=== PATIENT | female | born 1950 | race Caucasian/White ===

== ENCOUNTER 2016-09-16 05:57 | Day surgery (SDC) | payer BC, MEDICARE ==
[~2016-09-16] VITALS: Ht 161.3 cm; Wt 97.3 kg
[~2016-09-16 05:57] MED LIST: ASPI81TA2 PO; GLIM4TAB3 PO; LEVO100T12 PO; LISI1TAB11 PO; METF10002 PO; SIMV40TA5 PO; SITA100T12 PO
--- OUTSIDE RECORDS SUMMARY | 2016-09-16 06:02 | XMS REPORT | Referral Summary ---
Author Author [facility], Family Medicine Organization [facility] Address Unknown Phone Unavailable Care Team Providers Care Marketing And Communications Officer Name Role Phone Carl Mena Primary Care Physician [phone] Encounter VC Date(s): 10/15/14 - 10/15/14 [facility], [address] [place] [address]- Discharge Diagnosis: Type II diabetes mellitus uncontrolled Discharge Diagnosis: Essential hypertension Discharge Disposition: 01-Home or Self Care Attending Physician: Roxie Stover APRN Admitting Physician: Roxie Stover APRN Vital Signs Most recent to 1 oldest [Reference Range]: Temperature Oral 36.7 degC [35.8-37.3 degC] (10/15/14 10:07 AM) Peripheral Pulse 64 bpm Rate [60-100 bpm] (10/15/14 10:07 AM) Blood Pressure 122/78 mmHg [90-140/60-90 mmHg] (10/15/14 10:07 AM) Problem List Condition Effective Dates Status Health Status Informant Thyroid Active disease(Confirmed) Essential Active hypertension (disorder)(Confirmed ) High Active Cholesterol(Confirme d)1 Hyperlipidemia(Confi Active rmed) Hypothyroidism Active (disorder)(Confirmed ) Overweight(Confirmed Active ) Type II diabetes Active mellitus uncontrolled (finding)(Confirmed) 1See Conversion Document. Allergies, Adverse Reactions, Alerts No Known Medication Allergies Substance Reaction Severity Status Nutrasweet FITZGERALD (headache) Severe Active Medications Sugar-[place] Plus Night-Time Cold tabs, Oral, Bedtime (once a day), as needed for flu symptoms, 0 Refill(s) Start Date: 03/17/15 Status: Ordered glimepiride 4 mg oral tablet See Instructions, TAKE ONE and HALF TABLET BY MOUTH EVERY MORNING, AND 1/2 TABLET AT SUPPER., # 180 tabs, 1 Refill(s), Pharmacy: [facility] #[id number], TAKE ONE and HALF TABLET BY MOUTH EVERY MORNING, AND 1/2 TABLET AT SUPPER. Start Date: 03/18/15 Status: Ordered Glucometer (DME) DME Item ReliOn Prime Use as directed, to test blood sugars daily., Supply Start Date: 07/18/14 Status: Ordered Januvia 25 mg oral tablet 25 mg 1 tabs, Oral, Daily, # 90 tabs, 1 Refill(s), Pharmacy: [facility] # [id number] Start Date: 03/17/15 Status: Ordered levothyroxine 100 mcg (0.1 mg) oral tablet 100 mcg 1 tabs, Oral, Daily, # 90 tabs, 3 Refill(s), Pharmacy: [facility] #[id number], 1 tabs Oral Daily Start Date: 03/18/15 Status: Ordered lisinopril-hydrochlorothiazide 20 mg-12.5 mg oral tablet See Instructions, TAKE ONE TABLET BY MOUTH ONCE A DAY, # 90 tabs, 1 Refill(s), Pharmacy: [facility] #[id number] Start Date: 03/17/15 Status: Ordered metFORMIN 1000 mg oral tablet See Instructions, TAKE ONE TABLET BY MOUTH TWICE A DAY, WITH MORNING AND EVENING MEALS, # 180 tabs, 1 Refill(s), Pharmacy: [facility] #[id number], TAKE ONE TABLET BY MOUTH TWICE A DAY, WITH MORNING AND EVENING MEALS Start Date: 03/17/15 Status: Ordered nystatin 100,000 units/g topical cream pal, Topical, BID, to the affected area(s). Start Date: 07/18/14 Status: Ordered simvastatin 40 mg oral tablet See Instructions, TAKE ONE TABLET BY MOUTH EVERY DAY, # 90 tabs, 1 Refill(s), Pharmacy: [facility] #[id number], TAKE ONE TABLET BY MOUTH EVERY DAY Start Date: 03/17/15 Status: Ordered Results No data available for this section Immunizations Vaccine Date Refusal Reason tetanus/diphth/pertuss (Tdap) adult/adol 03/21/12 tetanus/diphth/pertuss (Tdap) adult/adol 04/01/10 influenza virus vaccine, inactivated 03/17/15 influenza virus vaccine, live 03/26/13 influenza virus vaccine, live 01/24/12 pneumococcal 13-valent conjugate vaccine 03/17/15 Procedures Procedure Date Related Diagnosis Body Site Gall Bladder 1995 Hysterectomy 1987 Social History Social History Type Response Smoking Status Never smoker Assessment and Plan Extracted from: Title: Ambulatory Patient Education Author: Roxie Stover TIRE CORD WEAVER Date : 10/15/14 Family Medicine Hypertension Hypertension is another name for high blood pressure. High blood pressure may mean that your heart needs to work harder to pump blood. Blood pressure consists of two numbers, which includes a higher number over a lower number ( example: 110/72). HOME CARE Make lifestyle changes as told by your doctor. This may include weight loss and exercise. Take your blood pressure medicine every day. Limit how much salt you use. Stop smoking if you smoke. Do not use drugs. Talk to your doctor if you are using decongestants or control pills. These medicines might make blood pressure higher. Females should not drink more than 1 alcoholic drink per day. Males should not drink more than 2 alcoholic drinks per day. See your doctor as told. GET HELP RIGHT AWAY IF: You have a blood pressure reading with a top number of 180 or higher. You get a very bad headache. You get blurred or changing vision. You feel confused. You feel weak, numb, or faint. You get chest or belly (abdominal ) pain. You throw up (vomit ). You cannot breathe very well. MAKE SURE YOU: Understand these instructions. Will watch your condition. Will get help right away if you are not doing well or get worse. Document Released: 10/25/2008 Document Revised: 07/31/2012 Document Reviewed: ExitCare Patient Information 2014 [employer] [facility]. No follow up information was provided. Extracted from: Title: Office Visit Note Author: Roxie Stover TIRE CORD WEAVER Date: 10/15/14 Assessment/Plan Essential hypertension Type II diabetes mellitus uncontrolled start januvia, recheck a1c in 1 mo. work of diet and exercise. Orders: sitaGLIPtin, 25 mg 1 tabs, Oral, Daily, # 30 tabs, 3 Refill(s), Pharmacy: [facility] #[id number]
--- OUTSIDE RECORDS SUMMARY | 2016-09-16 06:02 | XMS REPORT | Referral Summary ---
Author Author [facility], Family [facility] Organization [facility] Address Unknown Phone Unavailable Care Team Providers Care Hospitality Intern Name Role Phone Carl Mena Primary Care Physician [phone] Encounter VC Date(s): 10/22/15 - 10/22/15 [facility] [address] [place] [address]- Discharge Diagnosis: Essential hypertension (disorder) Discharge Diagnosis: Type 2 diabetes mellitus without complications Discharge Diagnosis: Hypothyroidism, unspecified Discharge Diagnosis: Hyperlipidemia, unspecified Discharge Disposition: 01-Home or Self Care Attending Physician: Kamla Mena DO Admitting Physician: Kamla Mena DO Vital Signs Most recent to 1 oldest [Reference Range]: Peripheral Pulse 76 bpm Rate [60-100 bpm] (10/22/15 3:17 PM) Respiratory Rate 18 br/min [14-20 br/min] (10/22/15 3:17 PM) Blood Pressure 112/70 mmHg [90-140/60-90 mmHg] (10/22/15 3:17 PM) SpO2 97 % (10/22/15 3:17 PM) Problem List Condition Effective Dates Status Health Status Informant Thyroid Active disease(Confirmed) Essential Active hypertension (disorder)(Confirmed ) High Active Cholesterol(Confirme d)1 Hyperlipidemia(Confi Active rmed) Hypothyroidism Active (disorder)(Confirmed ) Overweight(Confirmed Active ) Type II diabetes Active mellitus uncontrolled (finding)(Confirmed) 1See Conversion Document. Allergies, Adverse Reactions, Alerts No Known Medication Allergies Substance Reaction Severity Status Nutrasweet FITZGERALD (headache)... Severe Active Medications Sugar-[place] Plus Night-Time Cold tabs, Oral, Bedtime (once a day), as needed for flu symptoms, 0 Refill(s) Start Date: 03/17/15 Status: Ordered glimepiride 4 mg oral tablet See Instructions, TAKE ONE TABLET BY MOUTH EVERY MORNING, AND 1/2 TABLET AT SUPPER, # 135 tabs, eRx: [facility] #[id number], TAKE ONE TABLET BY MOUTH EVERY MORNING, AND 1/2 TABLET AT SUPPER Start Date: 09/08/15 Status: Ordered Glucometer (DME) DME Item ReliOn Prime Use as directed, to test blood sugars daily., Supply Start Date: 07/18/14 Status: Ordered Januvia 25 mg oral tablet See Instructions, TAKE ONE TABLET BY MOUTH DAILY, # 90 tabs, eRx: [facility] #[id number], TAKE ONE TABLET BY MOUTH DAILY Start Date: 10/08/15 Status: Ordered levothyroxine 100 mcg (0.1 mg) oral tablet 100 mcg 1 tabs, Oral, Daily, over due for appointment no more refills until seen , # 30 tabs, 0 Refill(s), Pharmacy: [facility] #[id number], 1 tabs Oral Daily, Instr:over due for appointment no more refills until seen Start Date: 09/29/15 Status: Ordered lisinopril-hydrochlorothiazide 20 mg-12.5 mg oral tablet 1 tabs, Oral, Daily, PT DUE FOR APPOINTMENT, # 30 tabs, 0 Refill(s), Pharmacy: [facility] #[id number] Start Date: 09/30/15 Status: Ordered metFORMIN 1000 mg oral tablet See Instructions, TAKE ONE TABLET BY MOUTH TWICE A DAY, WITH MORNING AND EVENING MEALS/ due for appointment, # 60 tabs, 0 Refill(s), Pharmacy: [facility] #[id number], TAKE ONE TABLET BY MOUTH TWICE A DAY, WITH MORNING AND EVENING MEALS/ due for appo... Start Date: 09/29/15 Status: Ordered nystatin 100,000 units/g topical cream pal, Topical, BID, to the affected area(s). Start Date: 07/18/14 Status: Ordered simvastatin 40 mg oral tablet See Instructions, TAKE ONE TABLET BY MOUTH DAILY, # 90 tabs, eRx: [facility] #[id number], TAKE ONE TABLET BY MOUTH DAILY Start Date: 10/13/15 Status: Ordered Results Chemistry Most recent to 1 oldest [Reference Range]: Sodium Lvl [135-144 140 mEq/L mEq/L] (10/22/15 3:58 PM) Potassium Lvl 5.0 mEq/L [3.5-5.2 mEq/L] (10/22/15 3:58 PM) Chloride [99-111 105 mEq/L mEq/L] (10/22/15 3:58 PM) CO2 [22-31 mEq/L] 25 mEq/L (10/22/15 3:58 PM) AGAP [3-20] 10 (10/22/15 3:58 PM) BUN [10-20 mg/dL] 30 mg/dL *HI* (10/22/15 3:58 PM) Glucose Lvl [70-99 161 mg/dL mg/dL] *HI* (10/22/15 3:58 PM) Creatinine Lvl 0.95 mg/dL [0.57-1.11 mg/dL] (10/22/15 3:58 PM) eGFR [>60 mL/min] 59 mL/min 1 *ABN* (10/22/15 3:58 PM) Calcium Lvl 9.5 mg/dL [8.9-10.5 mg/dL] (10/22/15 3:58 PM) Albumin Lvl [3.4-4.8 4.2 gm/dL gm/dL] (10/22/15 3:58 PM) Total Protein 6.7 gm/dL [6.2-8.1 gm/dL] (10/22/15 3:58 PM) Globulin [1.8-4.0 2.5 gm/dL gm/dL] (10/22/15 3:58 PM) ALT [0-55 U/L] 13 U/L (10/22/15 3:58 PM) AST [5-34 U/L] 12 U/L (10/22/15 3:58 PM) Alk Phos [40-150 89 U/L U/L] (10/22/15 3:58 PM) Bili Total [0.2-1.2 0.3 mg/dL mg/dL] (10/22/15 3:58 PM) TSH with Reflex Free 1.25 T4 [0.35-4.94] (10/22/15 3:58 PM) Hgb A1c [4.1-5.6 %] 8.3 % *HI* (10/22/15 3:58 PM) eAvg Glucose 191.5 mg/dL (10/22/15 3:58 PM) 1Result Comment: Multiply eGFR results by 1.21 for race. Immunizations Vaccine Date Refusal Reason tetanus/diphth/pertuss (Tdap) adult/adol 03/21/12 tetanus/diphth/pertuss (Tdap) adult/adol 04/01/10 influenza virus vaccine, inactivated 03/17/15 influenza virus vaccine, live 03/26/13 influenza virus vaccine, live 01/24/12 pneumococcal 13-valent conjugate vaccine 03/17/15 Procedures Procedure Date Related Diagnosis Body Site Gall Bladder 1995 Hysterectomy 1987 Social History Social History Type Response Smoking Status Never smoker Assessment and Plan Extracted from: Title: Office Visit Note Author: Kamla Mena DO Date: 10/22/15 Assessment/Plan Diabetes, Type 2 diabetes mellitus without complications We will get an A1c today with further recommendations after results. If A1c is within good control she will return to clinic in 6 months. Ordered: Hemoglobin A1c Office Visit Level 4 Est 90949 Essential hypertension (disorder) This is well-controlled at this time, we will get a CMP today. Return to clinic 6 months. Ordered: Office Visit Level 4 Est 11421 Hyperlipidemia, Hyperlipidemia, unspecified She has not yet due for fasting lipid panel. We will get a CMP today. Return to clinic 6 months. Ordered: Comprehensive Metabolic Panel Office Visit Level 4 Est 88005 Hypothyroidism, Hypothyroidism, unspecified TSH today since we recently changed her medications. Further recommendations after results. Ordered: Office Visit Level 4 Est 36426 TSH with Reflex Free T4 Orders: BD Bone Density DEXA Axial Skeleton
--- OUTSIDE RECORDS SUMMARY | 2016-09-16 06:02 | XMS REPORT | Referral Summary ---
Author Author [facility], Family Medicine Organization [facility] Address Unknown Phone Unavailable Care Team Providers Care Xerox Machine Assembler Name Role Phone Carl Mena Primary Care Physician [phone] Encounter VC Date(s): 03/17/15 - 03/17/15 [facility], [address] [place] [address]- Discharge Diagnosis: Essential hypertension (disorder) Discharge Disposition: 01-Home or Self Care Attending Physician: Kamla Mena DO Admitting Physician: Kamla Mena DO Vital Signs Most recent to 1 oldest [Reference Range]: Temperature Tympanic 36.9 degC [36.6-38.1 degC] (03/17/15 3:41 PM) Peripheral Pulse 100 bpm Rate [60-100 bpm] (03/17/15 3:41 PM) Blood Pressure 116/66 mmHg [90-140/60-90 mmHg] (03/17/15 3:41 PM) SpO2 94 % (03/17/15 3:41 PM) Problem List Condition Effective Dates Status Health Status Informant Thyroid Active disease(Confirmed) Essential Active hypertension (disorder)(Confirmed ) High Active Cholesterol(Confirme d)1 Hyperlipidemia(Confi Active rmed) Hypothyroidism Active (disorder)(Confirmed ) Overweight(Confirmed Active ) Type II diabetes Active mellitus uncontrolled (finding)(Confirmed) 1See Conversion Document. Allergies, Adverse Reactions, Alerts No Known Medication Allergies Substance Reaction Severity Status Nutrasweet FITZGERALD (headache) Severe Active Medications Sugar-[place] Plus Night-Time Cold tabs, Oral, Bedtime (once a day), as needed for flu symptoms, 0 Refill(s) Start Date: 03/17/15 Status: Ordered glimepiride 4 mg oral tablet See Instructions, TAKE ONE TABLET BY MOUTH EVERY MORNING, AND 1/2 TABLET AT SUPPER., # 135 tabs, 1 Refill(s), Pharmacy: [facility] #[id number], TAKE ONE TABLET BY MOUTH EVERY MORNING, AND 1/2 TABLET AT SUPPER. Start Date: 03/17/15 Status: Ordered Glucometer (DME) DME Item ReliOn Prime Use as directed, to test blood sugars daily., Supply Start Date: 07/18/14 Status: Ordered Januvia 25 mg oral tablet 25 mg 1 tabs, Oral, Daily, # 90 tabs, 1 Refill(s), Pharmacy: [facility] # [id number] Start Date: 03/17/15 Status: Ordered levothyroxine 125 mcg (0.125 mg) oral tablet 125 mcg 1 tabs, Oral, Daily, # 90 tabs, 1 Refill(s), Pharmacy: [facility] #[id number], 1 tabs Oral Daily Start Date: 03/17/15 Status: Ordered lisinopril-hydrochlorothiazide 20 mg-12.5 mg oral tablet See Instructions, TAKE ONE TABLET BY MOUTH ONCE A DAY, # 90 tabs, 1 Refill(s), Pharmacy: [facility] #[id number] Start Date: 03/17/15 Status: Ordered metFORMIN 1000 mg oral tablet See Instructions, TAKE ONE TABLET BY MOUTH TWICE A DAY, WITH MORNING AND EVENING MEALS, # 180 tabs, 1 Refill(s), Pharmacy: [facility] #[id number], TAKE ONE TABLET BY MOUTH TWICE A DAY, WITH MORNING AND EVENING MEALS Start Date: 03/17/15 Status: Ordered nystatin 100,000 units/g topical cream pal, Topical, BID, to the affected area(s). Start Date: 07/18/14 Status: Ordered simvastatin 40 mg oral tablet See Instructions, TAKE ONE TABLET BY MOUTH EVERY DAY, # 90 tabs, 1 Refill(s), Pharmacy: [facility] #[id number], TAKE ONE TABLET BY MOUTH EVERY DAY Start Date: 03/17/15 Status: Ordered Results Chemistry Most recent to 1 oldest [Reference Range]: TSH [0.35-4.94] 0.05 *LOW* (03/17/15 4:35 PM) Immunizations Vaccine Date Refusal Reason tetanus/diphth/pertuss (Tdap) adult/adol 03/21/12 tetanus/diphth/pertuss (Tdap) adult/adol 04/01/10 influenza virus vaccine, inactivated 03/17/15 influenza virus vaccine, live 03/26/13 influenza virus vaccine, live 01/24/12 pneumococcal 13-valent conjugate vaccine 03/17/15 Procedures Procedure Date Related Diagnosis Body Site Collection of venous blood by venipuncture 03/17/15 Gall Bladder 1995 Hysterectomy 1988 Social History Social History Type Response Smoking Status Never smoker Assessment and Plan Extracted from: Title: Office Visit Note Author: Kamla Mena DO Date: 03/17/15 Assessment/Plan Diabetes A1c today, recommendations after this. Return to clinic 6 months unless drastic change in A1c. Ordered: Hemoglobin A1c Office Visit Level 4 Est 97444 Essential hypertension (disorder) Currently controlled, continue current medications. Ordered: Office Visit Level 4 Est 55216 Hypothyroidism Recheck lab today, further recommendations upon results. Return to clinic 6 months. Ordered: Office Visit Level 4 Est 78140 TSH 3rd Generation Need for influenza vaccination Ordered: Office Visit Level 4 Est 36104 Orders: glimepiride, See Instructions, TAKE ONE TABLET BY MOUTH EVERY MORNING , AND 1/2 TABLET AT SUPPER., # 135 tabs, 1 Refill(s), Pharmacy: [facility] #[id number], TAKE ONE TABLET BY MOUTH EVERY MORNING, AND 1/2 TABLET AT SUPPER. levothyroxine, 125 mcg 1 tabs, Oral, Daily, # 90 tabs, 1 Refill(s), Pharmacy: [facility] #[id number], 1 tabs Oral Daily lisinopril-hydrochlorothiazide, See Instructions, TAKE ONE TABLET BY MOUTH ONCE A DAY, # 90 tabs, 1 Refill(s), Pharmacy: [facility] #[id number] metFORMIN, See Instructions, TAKE ONE TABLET BY MOUTH TWICE A DAY, WITH MORNING AND EVENING MEALS, # 180 tabs, 1 Refill(s), Pharmacy: [facility] # [id number], TAKE ONE TABLET BY MOUTH TWICE A DAY, WITH MORNING AND EVENING MEALS simvastatin, See Instructions, TAKE ONE TABLET BY MOUTH EVERY DAY, # 90 tabs, 1 Refill(s), Pharmacy: [facility] #[id number], TAKE ONE TABLET BY MOUTH EVERY DAY sitaGLIPtin, 25 mg 1 tabs, Oral, Daily, # 90 tabs, 1 Refill(s), Pharmacy: [facility] #[id number]
--- OUTSIDE RECORDS SUMMARY | 2016-09-16 06:02 | XMS REPORT | Referral Summary ---
Author Author [facility], Family Medicine Organization [facility] Address Unknown Phone Unavailable Care Team Providers Care Coal Or Ore Controller Name Role Phone Carl Mena Primary Care Physician [phone] Encounter VC Date(s): 03/17/15 - 03/17/15 [facility], [address] [place] [address]- Discharge Diagnosis: Essential hypertension (disorder) Discharge Disposition: [...] Status Nutrasweet FITZGERALD (headache)... Severe Active Medications Sugar-Ber[place] Plus Night-Time Cold tabs, Oral, Bedtime (once a day), as needed for flu symptoms, 0 Refill(s) Start Date: 03/17/15 Status: Ordered glimepiride 4 mg oral tablet See Instructions, TAKE ONE TABLET BY MOUTH EVERY MORNING, AND 1/2 TABLET AT SUPPER, # 135 tabs, eRx: [facility] #[id number], TAKE ONE TABLET BY MOUTH EVERY MORNING, AND 1/2 TABLET AT SUPPER Start Date: 09/08/15 Status: Ordered Glucometer (DME) DME Item ReliOn Prime Use as directed, to test blood sugars daily., Supply Start Date: 07/18/14 Status: Ordered Januvia 25 mg oral tablet 25 mg 1 tabs, Oral, Daily, # 90 tabs, 1 Refill(s), Pharmacy: [facility] # [id number] Start Date: 03/17/15 Status: Ordered levothyroxine 100 mcg (0.1 mg) oral tablet 100 mcg 1 tabs, Oral, Daily, # 90 tabs, 3 Refill(s), Pharmacy: [facility] #[id number], 1 tabs Oral Daily Start Date: 03/18/15 Status: Ordered lisinopril-hydrochlorothiazide 20 mg-12.5 mg oral tablet See Instructions, TAKE ONE TABLET BY MOUTH ONCE A DAY, # 90 tabs, 1 Refill(s), Pharmacy: [facility] #[id number] Start Date: 03/17/15 Status: Ordered metFORMIN 1000 mg oral tablet See Instructions, TAKE ONE TABLET BY MOUTH TWICE A DAY, WITH MORNING AND EVENING MEALS, # 180 tabs, 1 Refill(s), Pharmacy: [facility] #[id number], TAKE ONE TABLET BY MOUTH TWICE A DAY, WITH MORNING AND EVENING MEALS Start Date: 03/17/15 Status: Ordered nystatin 100,000 units/g topical cream pal, Topical, BID, to the affected area(s). Start Date: 07/18/14 Status: Ordered simvastatin 40 mg oral tablet See Instructions, TAKE ONE TABLET BY MOUTH EVERY DAY, # 90 tabs, 1 Refill(s), Pharmacy: [facility] #[id number], TAKE ONE TABLET BY MOUTH EVERY DAY Start Date: 03/17/15 Status: Ordered Results Chemistry Most recent to 1 oldest [Reference Range]: TSH [0.35-4.94] 0.05 *LOW* (03/17/15 4:35 PM) Hgb A1c [4.1-5.6 %] 8.1 % *HI* (03/17/15 4:35 PM) eAvg Glucose 185.8 mg/dL (03/17/15 4:35 PM) Immunizations Vaccine Date Refusal [...] Hemoglobin A1c Office Visit Level 4 Est 53558 Essential hypertension (disorder) Currently controlled, continue current medications. Ordered: Office Visit Level 4 Est 39748 Hypothyroidism Recheck lab today, further recommendations upon results. Return to clinic 6 months. Ordered: Office Visit Level 4 Est 26853 TSH 3rd Generation Need for influenza vaccination Ordered: Office Visit Level 4 Est 46018 Orders: glimepiride, See Instructions, TAKE ONE TABLET BY MOUTH EVERY MORNING , AND 1/2 TABLET AT SUPPER., # 135 tabs, 1 Refill(s), Pharmacy: [facility] #[id number], TAKE ONE TABLET BY MOUTH EVERY MORNING, AND 1/2 TABLET AT SUPPER. levothyroxine, 125 mcg 1 tabs, Oral, Daily, # 90 tabs, 1 Refill(s), Pharmacy: [facility] #[id number], 1 tabs Oral Daily lisinopril-hydrochlorothiazide, See Instructions, TAKE ONE TABLET BY MOUTH ONCE A DAY, # 90 tabs, 1 Refill(s), Pharmacy: [facility] #[id number] metFORMIN, See Instructions, TAKE ONE TABLET BY MOUTH TWICE A DAY, WITH MORNING AND EVENING MEALS, # 180 tabs, 1 Refill(s), Pharmacy: [facility] # [id number], TAKE ONE TABLET BY MOUTH TWICE A DAY, WITH MORNING AND EVENING MEALS simvastatin, See Instructions, TAKE ONE TABLET BY MOUTH EVERY DAY, # 90 tabs, 1 Refill(s), Pharmacy: [facility] #[id number], TAKE ONE TABLET BY MOUTH EVERY DAY sitaGLIPtin, 25 mg 1 tabs, Oral, Daily, # 90 tabs, 1 Refill(s), Pharmacy: [facility] #[id number]
--- OUTSIDE RECORDS SUMMARY | 2016-09-16 06:02 | XMS REPORT | Referral Summary ---
Author Author [facility] [place], [facility] Medicine Organization [facility] Address Unknown Phone Unavailable Care Team Providers Care Four Slide Machine Setter Name Role Phone Carl Mena Primary Care Physician [phone] Encounter Date(s): 01/28/16 - 01/28/16 [facility] [place], [address] [place] [address]- Discharge Diagnosis: Diabetes mellitus type 2, uncontrolled, without complications Discharge Diagnosis: Encounter for immunization Discharge Diagnosis: Hypothyroidism (disorder) Discharge Disposition: 01-Home or Self Care Attending Physician: Kamla Mena DO Admitting Physician: Kamla Mena DO Vital Signs Most recent to 1 oldest [Reference Range]: Peripheral Pulse 88 bpm Rate [60-100 bpm] (01/28/16 9:04 AM) Blood Pressure 110/72 mmHg [90-140/60-90 mmHg] (01/28/16 9:04 AM) Problem List Condition Effective Dates Status Health Status Informant Thyroid Active disease(Confirmed) Essential Active hypertension (disorder)(Confirmed ) High Active Cholesterol(Confirme d)1 Hyperlipidemia(Confi Active rmed) Hypothyroidism Active (disorder)(Confirmed ) Overweight(Confirmed Active ) Diabetes mellitus Active type 2, uncontrolled, without complications(Confir med) 1See Conversion Document. Allergies, Adverse Reactions, Alerts Substance Reaction Severity Status Nutrasweet FITZGERALD (headache)... Severe Active Medications Sugar-Teague Plus Night-Time Cold tabs, Oral, Bedtime (once a day), as needed for flu symptoms, 0 Refill(s) Start Date: 03/17/15 Status: Ordered glimepiride 4 mg oral tablet See Instructions, TAKE 1.5 TABLETS BY MOUTH EVERY MORNING, AND 1 TABLET AT SUPPER, # 135 tabs, eRx: [facility] #[id number], TAKE ONE TABLET BY MOUTH EVERY MORNING, AND 1/2 TABLET AT SUPPER Start Date: 12/08/15 Status: Ordered Glucometer (DME) DME Item ReliOn Prime Use as directed, to test blood sugars daily., Supply Start Date: 07/18/14 Status: Ordered Januvia 25 mg oral tablet See Instructions, TAKE ONE TABLET BY MOUTH DAILY, # 90 tabs, 1 Refill(s), eRx: [facility] #[id number], TAKE ONE TABLET BY MOUTH DAILY Start Date: 12/26/15 Status: Ordered levothyroxine 100 mcg (0.1 mg) oral tablet 100 mcg 1 tabs, Oral, Daily, # 30 tabs, 6 Refill(s), Pharmacy: [facility] #[id number], 1 tabs Oral Daily Start Date: 10/27/15 Status: Ordered lisinopril-hydrochlorothiazide 20 mg-12.5 mg oral tablet See Instructions, TAKE ONE TABLET BY MOUTH DAILY, MUST CALL MD FOR APPOINTMENT , # 30 tabs, 5 Refill(s), eRx: [facility] #[id number], TAKE ONE TABLET BY MOUTH DAILY, MUST CALL MD FOR APPOINTMENT Start Date: 11/03/15 Status: Ordered metFORMIN 1000 mg oral tablet See Instructions, TAKE ONE TABLET BY MOUTH TWICE A DAY, WITH MORNING AND EVENING MEALS, # 60 tabs, 6 Refill(s), Pharmacy: [facility] #[id number], TAKE ONE TABLET BY MOUTH TWICE A DAY, WITH MORNING AND EVENING MEALS Start Date: 10/27/15 Status: Ordered nystatin 100,000 units/g topical cream pal, Topical, BID, to the affected area(s). Start Date: 07/18/14 Status: Ordered Plus 1 tabs, Oral, Daily, 0 Refill(s) Start Date: 01/28/16 Status: Ordered simvastatin 40 mg oral tablet See Instructions, TAKE ONE TABLET BY MOUTH DAILY, # 90 tabs, 1 Refill(s), eRx: [facility] #[id number], TAKE ONE TABLET BY MOUTH DAILY Start Date: 01/16/16 Status: Ordered Vitamin D3 1,000 Intl_Units, Oral, Daily, 0 Refill(s) Start Date: 01/28/16 Status: Ordered Results Chemistry Most recent to 1 oldest [Reference Range]: Hgb A1c [4.1-5.6 %] 8.4 % *HI* (01/28/16 9:53 AM) eAvg Glucose 194.4 mg/dL (01/28/16 9:53 AM) Immunizations Vaccine Date Refusal Reason tetanus/diphth/pertuss (Tdap) adult/adol 03/21/12 tetanus/diphth/pertuss (Tdap) adult/adol 04/01/10 influenza virus vaccine, inactivated 01/28/16 influenza virus vaccine, inactivated 03/17/15 influenza virus vaccine, live 03/26/13 influenza virus vaccine, live 01/24/12 pneumococcal 13-valent conjugate vaccine 03/17/15 Procedures Procedure Date Related Diagnosis Body Site Collection of venous blood by venipuncture 01/28/16 Bone densimetry normal 12/09/15 Mammogram 09/01/15 Colonoscopy 05/24/05 Gall Bladder 1995 Hysterectomy 1988 Social History Social History Type Response Smoking Status Never smoker Assessment and Plan Extracted from: Title: Office Visit Note Author: Kamla Mena DO Date: 01/28/16 Assessment/Plan Diabetes mellitus type 2, uncontrolled, without complications We discussed that it is most likely that her A1c will continue to be out of control. We will get one today. We did discuss the option of management by the clinical pharmacist as it is a free service. Patient would like to pursue this as her has been laid off and some money is tight right now. We will refer her to clinical pharmacist for further diabetic management. Ordered: Office Visit Level 4 Est 44521 Hypothyroidism (disorder) Labs reveal that this dose of thyroid medication is working well. She should return to clinic in3 months for management of her chronic medical condition. Ordered: Office Visit Level 4 Est 73735 Orders: glimepiride, See Instructions, TAKE 1.5 TABLETS BY MOUTH EVERY MORNING , AND 1 TABLET AT SUPPER, # 135 tabs, eRx: [facility] #[id number], TAKE ONE TABLET BY MOUTH EVERY MORNING, AND 1/2 TABLET AT SUPPER
--- OUTSIDE RECORDS SUMMARY | 2016-09-16 06:02 | XMS REPORT | Referral Summary ---
Author Organization Unknown Address Unknown Phone Unavailable Care Team Providers Care Continuing Education Director Name Role Phone Zulma Sexton Primary Care Physician [phone] Encounter VC Date(s): 08/08/14 - 08/08/14 [facility], [place], [facility] Medicine [address] [place] [address] Dr Shafer [place] [id number] Discharge Diagnosis: Hypothyroidism Discharge Diagnosis: Nontoxic goiter Discharge Diagnosis: Need for varicella vaccine Discharge Diagnosis: Hyperlipidemia. Discharge Diagnosis: Benign HTN Discharge Diagnosis: Well woman exam Discharge Diagnosis: Diabetes mellitus Discharge Diagnosis: Metabolic syndrome Discharge Disposition: Home or Self Care Attending Physician: Peggy Sexton MD Admitting Physician: Peggy Sexton MD Vital Signs Most recent to 1 oldest [Reference Range]: Temperature Tympanic 36.3 degC [36.6-38.1 degC] *LOW* (08/08/14 7:53 AM) Peripheral Pulse 72 bpm Rate [60-100 bpm] (08/08/14 7:53 AM) Blood Pressure 120/80 mmHg [90-140/60-90 mmHg] (08/08/14 7:53 AM) Problem List Condition Effective Dates Status Health Status Informant Thyroid Active disease(Confirmed) Essential Active hypertension (disorder)(Confirmed ) High Active Cholesterol(Confirme d)1 Hyperlipidemia(Confi Active rmed) Hypothyroidism Active (disorder)(Confirmed ) Overweight(Confirmed Active ) Type II diabetes Active mellitus uncontrolled (finding)(Confirmed) 1See Conversion Document. Allergies, Adverse Reactions, Alerts No Known Medication Allergies Medications glimepiride 4 mg oral tablet See Instructions, TAKE ONE TABLET BY MOUTH EVERY MORNING, AND 1/2 TABLET AT SUPPER, # 135 tabs, 1 Refill(s), eRx: [facility] #[id number], TAKE ONE TABLET BY MOUTH EVERY MORNING, AND 1/2 TABLET AT SUPPER Special Instructions: TAKE ONE TABLET BY MOUTH EVERY MORNING, AND 1/2 TABLET AT SUPPER Start Date: 04/11/14 Status: Ordered Glucometer (DME) DME Item ReliOn Prime Use as directed, to test blood sugars daily., Supply Special Instructions: ReliOn Prime Use as directed, to test blood sugars daily. Start Date: 07/18/14 Status: Ordered levothyroxine 125 mcg (0.125 mg) oral tablet 1 tabs, Oral, Daily, # 60 tabs, 0 Refill(s), Pharmacy: [facility] #[id number] , 1 tabs Oral Daily Start Date: 08/08/14 Status: Ordered lisinopril-hydrochlorothiazide 20 mg-12.5 mg oral tablet See Instructions, TAKE ONE TABLET BY MOUTH ONCE A DAY, # 90 tabs, 1 Refill(s), eRx: [facility] #[id number], TAKE ONE TABLET BY MOUTH ONCE A DAY Special Instructions: TAKE ONE TABLET BY MOUTH ONCE A DAY Start Date: 04/11/14 Status: Ordered metFORMIN 1000 mg oral tablet See Instructions, TAKE ONE TABLET BY MOUTH TWICE A DAY, WITH MORNING AND EVENING MEALS, # 180 tabs, 1 Refill(s), eRx: [facility] #[id number], TAKE ONE TABLET BY MOUTH TWICE A DAY, WITH MORNING AND EVENING MEALS Special Instructions: TAKE ONE TABLET BY MOUTH TWICE A DAY, WITH MORNING AND EVENING MEALS Start Date: 04/11/14 Status: Ordered nystatin 100,000 units/g topical cream pal, Topical, BID, to the affected area(s). Special Instructions: to the affected area(s). Start Date: 07/18/14 Status: Ordered simvastatin 40 mg oral tablet See Instructions, TAKE ONE TABLET BY MOUTH EVERY DAY, # 90 tabs, 1 Refill(s), eRx: [facility] #[id number], TAKE ONE TABLET BY MOUTH EVERY DAY Special Instructions: TAKE ONE TABLET BY MOUTH EVERY DAY Start Date: 03/25/14 Status: Ordered Results Hematology Most recent to 1 oldest [Reference Range]: WBC [4.8-10.8 K/uL] 10.7 K/uL (08/08/14 8:43 AM) RBC [4.00-5.20 M/uL] 3.92 M/uL *LOW* (08/08/14 8:43 AM) Hgb [12.0-16.0 12.2 gm/dL gm/dL] (08/08/14 8:43 AM) Hct [37.0-47.0 %] 35.5 % *LOW* (08/08/14 8:43 AM) MCV [82.0-99.0 fL] 90.6 fL (08/08/14 8:43 AM) MCH [27.0-32.0 pg] 31.1 pg (08/08/14 8:43 AM) MCHC [32.0-36.0 34.4 gm/dL gm/dL] (08/08/14 8:43 AM) RDW [11.5-14.5 %] 13.0 % (08/08/14 8:43 AM) Platelet [150-400 383 K/uL K/uL] (08/08/14 8:43 AM) MPV [8.8-14.8 fL] 10.8 fL (08/08/14 8:43 AM) Immature 0.4 % Granulocytes (08/08/14 8:43 AM) [0.0-1.0 %] Neutrophils [51-75 55 % %] (08/08/14 8:43 AM) Lymphocytes [20-46 33 % %] (08/08/14 8:43 AM) Monocytes [4-11 %] 9 % (08/08/14 8:43 AM) Eosinophils [0-4 %] 3 % (08/08/14 8:43 AM) Basophils [0-2 %] 1 % (08/08/14 8:43 AM) Neutro Absolute 5.87 THOUS [1.90-7.00 THOUS] (08/08/14 8:43 AM) Lymph Absolute 3.53 THOUS [0.80-3.30 THOUS] *HI* (08/08/14 8:43 AM) [place] Absolute 0.91 THOUS [0.30-1.00 THOUS] (08/08/14 8:43 AM) Eos Absolute 0.32 THOUS [0.00-0.50 THOUS] (08/08/14 8:43 AM) Baso Absolute 0.07 THOUS [0.00-0.20 THOUS] (08/08/14 8:43 AM) Chemistry Most recent to 1 oldest [Reference Range]: Sodium Lvl [135-144 141 mEq/L mEq/L] (08/08/14 8:43 AM) Potassium Lvl 4.8 mEq/L [3.5-5.2 mEq/L] (08/08/14 8:43 AM) Chloride [99-111 106 mEq/L mEq/L] (08/08/14 8:43 AM) CO2 [22-31 mEq/L] 20 mEq/L *LOW* (08/08/14 8:43 AM) AGAP [3-20] 15 (08/08/14 8:43 AM) BUN [10-20 mg/dL] 26 mg/dL *HI* (08/08/14 8:43 AM) Glucose Lvl [70-99 225 mg/dL mg/dL] *HI* (08/08/14 8:43 AM) Creatinine Lvl 1.01 mg/dL [0.57-1.11 mg/dL] (08/08/14 8:43 AM) eGFR [>60 mL/min] 55 mL/min 1 *ABN* (08/08/14 8:43 AM) Calcium Lvl 9.7 mg/dL [8.9-10.5 mg/dL] (08/08/14 8:43 AM) Chol [0-199 mg/dL] 195 mg/dL (08/08/14 8:43 AM) Trig [0-149 mg/dL] 312 mg/dL *HI* (08/08/14 8:43 AM) HDL [40-84 mg/dL] 37 mg/dL *LOW* (08/08/14 8:43 AM) LDL [0-130 mg/dL] 96 mg/dL (08/08/14 8:43 AM) VLDL Cholesterol 62 mg/dL [0-28 mg/dL] *HI* (08/08/14 8:43 AM) Cardiac Risk 5.3 [0.0-5.0] *HI* (08/08/14 8:43 AM) TSH [0.35-4.94] 16.93 *HI* (08/08/14 8:43 AM) Hgb A1c [4.1-5.6 %] 8.1 % *HI* (08/08/14 8:43 AM) eAvg Glucose 185.8 mg/dL (08/08/14 8:43 AM) 1Result Comment: Multiply eGFR results by 1.21 for race. Immunizations Vaccine Date Refusal Reason tetanus/diphth/pertuss (Tdap) adult/adol 03/21/12 tetanus/diphth/pertuss (Tdap) adult/adol 04/01/10 influenza virus vaccine, live 03/26/13 influenza virus vaccine, live 01/24/12 Procedures Procedure Date Related Diagnosis Body Site Collection of venous blood by venipuncture 08/08/14 Gall Bladder 1995 Hysterectomy 1987 Social History Social History Type Response Smoking Status Never smoker Assessment and Plan Extracted from: Title: Ambulatory Patient Education Author: Peggy Sexton MD Date: 08/08/14 Family Medicine Diabetes and Standards of Medical Care Diabetes is complicated. You may find that your diabetes team includes a dietitian, nurse, fruit trimmer, eye doctor, and more. To help everyone know what is going on and to help you get the care you deserve, the following schedule of care was developed to help keep you on track. Below are the tests, exams, vaccines, medicines, education, and plans you will need. A1c test Performed at least 2 times a year if you are meeting treatment goals. Performed 4 times a year if therapy has changed or if you are not meeting treatment goals. Blood pressure test Performed at every routine medical visit. The goal is less than 120/80 mmHg. Dental exam Follow up with the dentist regularly. Eye exam Diagnosed with type 1 diabetes as a child: Get an exam upon reaching the age of 10 years or older and having had diabetes for 35 years. Yearly eye exams are recommended after that initial eye exam. Diagnosed with type 1 diabetes as an adult: Get an exam within 5 years of diagnosis and then yearly. Diagnosed with type 2 diabetes: Get an exam as soon as possible after the diagnosis and then yearly. Foot care exam Visual foot exams are performed at every routine medical visit. The exams check for cuts, injuries, or other problems with the feet. A comprehensive foot exam should be done yearly. This includes visual inspection as well as assessing foot pulses and testing for loss of sensation. Kidney function test (urine microalbumin ) Performed once a year. Type 1 diabetes: The first test is performed 5 years after diagnosis. Type 2 diabetes: The first test is performed at the time of diagnosis. A serum creatinine and estimated glomerular filtration rate (eGFR) test is done once a year to tell the level of chronic kidney disease (CKD), if present. Lipid profile (Cholesterol, HDL, LDL, Triglycerides) Performed every 5 years for most people. The goal for LDL is less than 100 mg/dl. If at high risk, the goal is less than 70 mg/dl. The goal for HDL is 40 mg/dl50 mg/dl for men and 50 mg/dl60 mg/dl for women. An HDL cholesterol of 60 mg/dL or higher gives some protection against heart disease. The goal for triglycerides is less than 150 mg/dl. Influenza vaccine, pneumococcal vaccine, and hepatitis B vaccine The influenza vaccine is recommended yearly. The pneumococcal vaccine is generally given once in a lifetime. However, there are some instances when another vaccination is recommended. Check with your caregiver. The hepatitis B vaccine is also recommended for adults with diabetes. Diabetes self-management education Recommended at diagnosis and ongoing as needed. Treatment plan Reviewed at every medical visit. Document Released: 03/06/2010 Document Revised: 04/25/2013 Document Reviewed: [facility] Patient Information 2014 [employer] [facility]. No follow up information was provided. Extracted from: Title: Office Visit Note Author: Peggy Sexton MD Date: 08/08/14 Assessment/Plan Benign HTN Diabetes mellitus recheck 3 months Hyperlipidemia. Hypothyroidism Metabolic syndrome Need for varicella vaccine Ordered: Varicella Zoster Antibody IgG Nontoxic goiter Well woman exam
[2016-09-16 06:12] VITALS: BP 128/77; PULSE 82; RESP 14; TEMP 99; O2SAT 96; Ht 161.3 cm; Wt 97.3 kg
[2016-09-16] MEDS ORDERED: LR 1,000 ML IV SCH (07:00)
[2016-09-16] MEDS ORDERED: LIDOCAINE 1% (10mg/ml) 2ml SDV INJ ONE (07:00)
--- NOTE | 2016-09-16 07:13 | ANESPREOP ---
Anesthesia Record Date and Time DATE: 09/16/16 TIME: 07:11 Pre-Op Diagnosis family hx of colon ca Proposed Surgical Procedure COLONOSCOPY Allergies: Coded Allergies: aspartame (Verified Allergy, Unknown, 09/16/16) Ht/Wt/BMI Height: 5 ' 3.50 " Weight: 97.300 kg BMI: 37.4 kg/m2 Vital Signs Date Time Temp Pulse Resp B/P Pulse Ox O2 Delivery O2 Flow Rate FiO2 09/16/16 06:12 99.0 82 14 128/77 96 Room Air Medications Inpatient Medications Current Medications Medications (Trade) Dose Ordered Sig/Amarilis Start Time Stop Time Status Last Admin Dose Admin Lactated Ringer's (Lactated Ringers) 1,000 ml @ 30 mls/hr Q24H 09/16/16 07:00 09/16/16 06:39 30 MLS/HR Aspirin (Aspirin) 81 Mg Tab.chew, 1 TAB PO DAILY, (Reported) Last Taken: on 09/15/16 07 Glimepiride (Glimepiride) 4 Mg Tablet, 1 TAB PO BID, (Reported) BEST TAKEN WITH BREAKFAST. Last Taken: on 09/15/16 1900 Levothyroxine Sodium (Levothyroxine Sodium) 100 Mcg Tablet, 1 TAB PO ACB, (Reported) Last Taken: on 09/16/16 0500 Lisinopril/Hydrochlorothiazide (Lisinopril- Hctz 20-12.5 mg Tab) 1 Each Tablet, 1 TAB PO DAILY, (Reported) Last Taken: on 09/15/16 07 Metformin HCl (Metformin HCl) 1,000 Mg Tablet, 1 TAB PO BIDWM, (Reported) Last Taken: on 09/15/161929 Simvastatin (Simvastatin) 40 Mg Tablet, 1 TAB PO HS, (Reported) Last Taken: on 09/15/16 07 Sitagliptin Phosphate (Januvia) 100 Mg Tablet, 100 MG PO DAILY, (Reported) Last Taken: on 09/15/161929 Currently on Beta Carroll: No Medical/Surgical History Anesthesia PMH: Reports: *Diabetes (TYPE 2), *Hypertension (TAKES MEDS), Arthritis (FINGERS), Obesity, Thyroid Disease (HYPOTHYROID), Denies: Anesthesia Reactions (NO AIRWAY ISSUES), CVA/Stroke/TIA, Cancer, Glaucoma, Hepatitis, Malignant Hyperthermia, Seizures, Sleep Apnea Smoking Status: Never smoker Has pt. smoked today?: No Use Chewing Tobacco?: No Second Hand Exposure: No Substance Use Type: does not use Substance last used: unknown Alcohol Intake: none Last Drink: unknown HX of Last Menstrual Period: HYST. Past Surgical History Orthopedic Surgeries: Abdominal Surgeries: Yes - MABEL Genitourinary Surgeries: Cardiac Surgeries: Endocrine Surgeries: Reproductive Surgeries: Yes - HYST Neurological Surgeries: Ear Surgeries: Nose Surgeries: Throat Surgeries: Yes - TONSILECTOMY Other Surgeries: Anesthesia Adverse Reactions: FOUND none Family Hx of Anesthesia Advers: none Hx of Motion Sickness: No Pertinent Findings EKG Rhythm: Sinus Rhythm Physical Exam Respiratory: Bilat breath sounds equal, Lungs clear Cardiovascular: FOUND Regular rate, rhythm, FOUND No murmur Airway Assessment Mallampati Score: II TMD: 3 Fingerbreadths Neck Extension: Fair Teeth: Upper Dentures Overall Assessment: No Airway Concerns ASA: 2 Plan Anesthesia Plan: TIVA Discussion Discussed risks/options/alternatives of anesthesia and questions answered. Patient consents. Nursing pain assessment noted. Present: Spouse Attestation Statement Prior to the delivery of any anesthetic medication, I examined the patient, developed the plan, obtained the patient's consent and discussed the risk and benefits of the procedure with the patient/guardian. THOMAS CARTER CRNA Sep 16, 2016 07:13
[2016-09-16] MEDS ORDERED: LIDOCAINE 1% (10mg/ml) 2ml SDV ONE (07:28)
[2016-09-16] MEDS ORDERED: PROPOFOL 500mg 50 ML IV ONE (07:28)
[2016-09-16] MEDS ORDERED: FENTANYL 100mcg/2ml INJECTION ONE (08:11)
[2016-09-16 08:21] VITALS: BP 89/51; PULSE 76; RESP 14; TEMP 97.2; O2SAT 93
--- NOTE | 2016-09-16 08:30 | ANESPO ---
Post-Op Note Date 09/16/16 Time: 08:29 Status Pt Participated in Evaluation: Pt participated in person Vital Signs Date Time Temp Pulse Resp B/P Pulse Ox O2 Delivery O2 Flow Rate FiO2 09/16/16 06:12 99.0 82 14 128/77 96 Room Air Respiratory Function: Airway patent, Regular respirations Cardiovascular Function: Regular pulse Mental Status: Alert/oriented Pain Level Intensity: 0 Hydration: Taking po fluids, IV infusing Complications during Recovery None apparent Post-Anesthesia Notes pt. chip. well Follow-Up Instructions Instructions Per Surgeon Additional Information none THOMAS CARTER CRNA Sep 16, 2016 08:30
[2016-09-16 08:34] VITALS: BP 90/57; PULSE 75; RESP 18; O2SAT 97
[2016-09-16 08:51] VITALS: BP 116/69; PULSE 77; RESP 18; TEMP 97.2; O2SAT 96
--- NOTE | 2016-09-16 18:11 | OPNOTEF ---
DATE OF SERVICE 09/16/2016 SURGEON Gil Sun MD PREOPERATIVE DIAGNOSIS Family history of colon cancer. POSTOPERATIVE DIAGNOSES Family history of colon cancer. Normal colonoscopy. PROCEDURES Colonoscopy. ANESTHESIA TIVA BRIEF HISTORY/INDICATIONS Mrs. Zuluaga is a 66-year-old female who presents today to [facility] to undergo a colonoscopy as a result of her family history for colon cancer in a first-degree relative, her mother. For completeness please refer to notes included in the patient's chart. FINDINGS Upon colonoscopy, there was no evidence for angiodysplastic lesions, polyps, diverticula or alicia malignancies. DESCRIPTION OF PROCEDURE After informed consent was obtained, the patient was brought to the endoscopy suite and placed on the table in left lateral decubitus position. The patient subsequently underwent total intravenous anesthesia by the nurse signal tester per my request. A formal timeout was then performed. Next, a digital rectal examination was performed. Normal sphincter tone. No rectal masses were appreciated. An Olympus colonoscope was inserted in the anus and advanced with the lumen of the colon under direct visualization at all times until the cecum was ascertained. Triangulation of the tenia coli, ileocecal valve and appendiceal lumen were all visualized. The scope was then slowly withdrawn, again while maintaining visualization of the lumen at all times. As stated above, the entire colon was without evidence for angiodysplastic lesions, polyps, diverticula or alicia malignancies. The scope continued to be withdrawn until it was brought forth back into the rectal vault. A J-maneuver was then performed. No worrisome perianal pathology was noted. The scope was allowed to straighten and was withdrawn through the anal verge. The patient tolerated the procedure without difficulty and was sent back to the preop area in stable condition. Secondary to the absence of findings upon this colonoscopy and secondary to her family history of colon cancer within a first-degree relative, I would recommend the patient undergo a repeat colonoscopy at a five-year interval. [facility]
== END 2016-09-16 08:57 | disposition home or self-care (01) ==
LOC: SCU 05:57
PROVIDERS: ATTEND Surgery
DX: Z12.11 Encounter for screening for malignant neoplasm of colon (principal); Z80.0 Family history of malignant neoplasm of digestive organs; E11.65 Type 2 diabetes mellitus with hyperglycemia; I10 Essential (primary) hypertension; E78.00 Pure hypercholesterolemia, unspecified; E03.9 Hypothyroidism, unspecified; E66.3 Overweight; Z68.37 Body mass index [BMI] 37.0-37.9, adult; Z79.899 Other long term (current) drug therapy
CPT/HCPCS: 45378; 82948; J2704; J3010; J7120